=== PATIENT | female | born 1990 | race African-American/Black ===

== ENCOUNTER 2017-01-18 09:49 | Day surgery (SDC) | payer BC ==
[~2017-01-18 09:49] MED LIST: DIPHENHYDRAMINE HCL 50 MG/ML VIAL ONE; EPINEPHRINE INJ 1 MG/10 ML DISP.SYRIN ONE; FENTANYL CITRATE INJ/PF 100 MCG/2 ML AMPUL ONE; FLUMAZENIL INJ 0.5 MG/5 ML VIAL IV ONE; GLUCAGON,HUMAN RECOMB 1 MG INJ ONE; NALOXONE HCL INJ/PF 0.4 MG/1 ML SDV ONE; ONDANSETRON HCL INJ/PF 4 MG/2 ML SDV ONE; PROMETHAZINE HCL INJ 25 MG/1 ML VIAL ONE
[2017-01-18] MEDS: MIDAZOLAM 2 MG/2 ML INJ ONE ×2 (10:33→10:40)
--- NOTE | 2017-01-18 11:30 | Operative Report ---
Operative Report DATE OF SURGERY: 01/18/17 Operative Report: The risks benefits and alternatives of the procedure explained to the patient in detail and informed consent is obtained that GIF Olympus video scope was inserted into the patient's mouth and hypopharynx the esophagus is identified intubated and insufflated the scope was then advanced through the esophagus stomach and duodenum retroflexion maneuver is done the esophagus stomach and first and second portions of the duodenum examined PREOPERATIVE DIAGNOSIS: Epigastric pain rule out peptic ulcer disease POSTOPERATIVE DIAGNOSIS: Gastritis status post biopsy rule out Helicobacter pylori. Esophageal biopsy, esophagitis versus De La Torre's esophagus OPERATION: EGD with biopsy SURGEON: HARDIK SHAHID ANESTHESIA: Moderate Sedation - 4 mg of Versed, 100 g of fentanyl. Conscious sedation time 15 minutes. TISSUE REMOVED OR ALTERED: Gastric specimens obtained as above COMPLICATIONS: None. ESTIMATED BLOOD LOSS: none. 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 First and second portions of the duodenum are normal. PROCEDURE: Patient tolerated the procedure well. No immediate postprocedure complications are noted. Patient is discharged in good condition. Discharge date 01/18/2017. Discharge diet: Regular. Discharge activity: Regular. 2-3 week follow-up to discuss findings. We'll await on biopsies. Patient is instructed to call the office or proceed to the emergency room should there be any further problems or questions.
[2017-01-18 12:21] VITALS: BP 119/81
== END 2017-01-18 12:10 | disposition home or self-care (01) ==
LOC: END 09:49
PROVIDERS: ATTEND Internal Medicine Gastroenterology
PROC: 0DB58ZX Excision of Esophagus, Via Natural or Artificial Opening Endoscopic, Diagnostic (ICD-10-PCS; 2017-01-18)
PROC: 0DB68ZX Excision of Stomach, Via Natural or Artificial Opening Endoscopic, Diagnostic (ICD-10-PCS; principal; 2017-01-18 10:00)
DX: K20.9 Esophagitis, unspecified (principal); K29.50 Unspecified chronic gastritis without bleeding; D64.9 Anemia, unspecified; Z79.899 Other long term (current) drug therapy
CPT/HCPCS: 43239; 88342 ×2; 88305 ×2; J2250; J3010; J0171; J1200; J1610; J2310; J2405; J2550; J3490